=== PATIENT | male | born 1955 | race Caucasian/White ===

== ENCOUNTER 2016-09-09 03:18 | Emergency (ER) | payer MEDICARE, MEDICAID ==
[~2016-09-09] VITALS: Ht 185.4 cm; Wt 60.0 kg
[2016-09-09] MEDS ORDERED: HYDROmorphone 1 MG/ML, 1ML IVPush PRN (04:00)
[2016-09-09] MEDS ORDERED: ONDANSETRON 2MG/ML, 2ML IVPush ONE (04:00)
[2016-09-09] MEDS ORDERED: ASPIRIN 81 MG TABLET CHEW PO ONE (04:00)
[2016-09-09 04:18] LABS: BLOOD UREA NITROGEN 15 mg/dL (7-18)
[2016-09-09] MEDS ORDERED: ONDANSETRON 2MG/ML, 2ML ONE (04:20)
[2016-09-09] MEDS ORDERED: ASPIRIN 81 MG TABLET CHEW ONE (04:20)
[2016-09-09] MEDS ORDERED: HYDROmorphone 1 MG/ML, 1ML ONE (04:20)
[2016-09-09 04:25] LABS: IS PT STATUS REG ER OR PRE ER? YES
[2016-09-09] MEDS ORDERED: OMNIPAQUE 350 MG/ML, 100ML BOTTLE ONE (04:47)
[2016-09-09] MEDS ORDERED: LEVOFLOXACIN/PMX 500MG/100ML 100 ML IV SCH (05:30)
[2016-09-09] MEDS ORDERED: SODIUM CHLORIDE 0.9% 1,000ML IVBOLUS ONE (05:30)
[2016-09-09] MEDS ORDERED: LEVOFLOXACIN/PMX 500MG/100ML 100 ML ONE (05:36)
[2016-09-09 06:40] VITALS: BP 97/46
== END 2016-09-09 06:43 | disposition home or self-care (01) ==
LOC: ED 05:40
DX: R07.89 Other chest pain (principal); C34.90 Malignant neoplasm of unspecified part of unspecified bronchus or lung; J69.0 Pneumonitis due to inhalation of food and vomit; Z59.0 Homelessness
CPT/HCPCS: 36415; 71275; 80048; 82040; 84484; 85025; 93005; 96365; 96375; 99285; J1170; J1956; J2405; J7030; Q9967